=== PATIENT | male | born 1970 | race American Indian/Alaskan Native ===

== ENCOUNTER 2017-05-18 13:40 | Outpatient (CLI) | payer OTHER ==
--- NOTE | 2017-05-18 14:49 | XRay Report ---
RIGHT SHOULDER RADIOGRAPHS INDICATION: Right shoulder pain. COMPARISON: None similar. FINDINGS: Frontal and Y views of the right shoulder, 3 projections demonstrate normal humeral head contour, well positioned against the glenoid. Intact acromioclavicular joint. Approximately 7 mm nonspecific humeral neck sclerotic focus, presumably a bone island. Preserved scapular contour. Normal visualized soft tissues, right ribs and lung. CONCLUSION: No acute right shoulder radiographic abnormality with a small nonspecific humeral neck sclerotic density, as described. Thank you for the opportunity to participate in this patient's care.
--- NOTE | 2017-05-18 14:52 | XRay Report ---
LUMBAR SPINE RADIOGRAPHS INDICATION: Lumbago with right-sided sciatica. COMPARISON: None similar. FINDINGS: AP and lateral lumbar spine radiographs demonstrate mild to moderate L4-L5 disc narrowing with some sclerosis and degenerative spurring. Normal remainder vertebral body stature and disc heights. Lumbar spine straightening, possibly positional versus spasm. Constipation suspected. Left hemipelvic phlebolith. Right hip hardware incompletely imaged. CONCLUSION: L4-L5 degenerative changes, possible constipation and right hip postsurgical changes, as described. Thank you for the opportunity to participate in this patient's care.
--- NOTE | 2017-05-18 14:58 | XRay Report ---
RIGHT HIP RADIOGRAPHS INDICATION: Right hip pain. COMPARISON: None similar. FINDINGS: AP pelvic radiograph with frontal and frog-leg projections of the right hip demonstrate right femoral medullary alvaro, anchored by 2 horizontal threaded screws proximally. Hypertrophic fracture repair changes. Normal femoral head contours bilaterally. Hip joint narrowing possible, more so medially and right greater than left. Intact SI joints. Lower lumbar degenerative changes. CONCLUSION: Right femoral hardware with hypertrophic bony changes, lower lumbar and possible hip degenerative changes, as described. Please correlate. Thank you for the opportunity to participate in this patient's care.
== END 2017-05-18 13:41 | disposition home or self-care (01) ==
LOC: XRAY 13:40
PROVIDERS: ATTEND Internal Medicine
DX: Z02.71 Encounter for disability determination (principal); M47.896 Other spondylosis, lumbar region; M25.551 Pain in right hip; M25.511 Pain in right shoulder; I87.8 Other specified disorders of veins
CPT/HCPCS: 72100